=== PATIENT | male | born 1990 | race Two or more races ===

== ENCOUNTER 2016-12-28 10:05 | Emergency (ER) | payer OTHER ==
[2016-12-28 10:21] VITALS: BP 133/78; PULSE 78; TEMP 98.2; BMI 24.1
[2016-12-28] MEDS ORDERED: diazePAM 5 MG TABLET ONE (11:16)
[2016-12-28] MEDS ORDERED: KETOROLAC TROMETHAMINE 60 MG/2 ML VIAL ONE (11:16)
--- NOTE | 2016-12-28 12:25 | PDOC ---
History of Present Illness - General Chief Complaint: Back Pain Stated Complaint: BACK PAIN (DISPLACED DISK) Time Seen by Provider: 12/28/16 10:59 - History of Present Illness Initial Comments: 12/28/16 12:22 CHIEF COMPLAINT: HISTORY OF PRESENT ILLNESS: 26 yo M with no significant PM presents to ED with back pain x "a few days." No recent travel or sick contacts. PAST MEDICAL HISTORY: Denies past medical history FAMILY HISTORY: Denies SOCIAL HISTORY: Lives at home with ____. Occupation: . Denies tobacco, alcohol, illicit drug use. SURGICAL HISTORY: Denies ALLERGIES: No known drug allergies REVIEW OF SYSTEMS General/Constitutional: Denies fever or chills. Denies weakness, weight change. HEENT: Denies change in vision. Denies ear pain or discharge. Denies sore throat. Cardiovascular: Denies chest pain or shortness of breath. Respiratory: Denies cough, wheezing, or hemoptysis. Gastrointestinal: Denies nausea, vomiting, diarrhea or constipation. Denies rectal bleeding. Genitourinary: Denies dysuria, frequency, or change in urination. Musculoskeletal: Denies joint or muscle swelling or pain. Denies neck or back pain. Skin and breasts: Denies rash or easy bruising. Neurologic: Denies headache, vertigo, loss of consciousness, or loss of sensation. Psychiatric: Denies depression or anxiety. Endocrine: Denies increased thirst. Denies abnormal weight change. Hematologic/Lymphatic: Denies anemia, easy bleeding, or history of blood clots. Allergic/Immunologic: Denies hives or skin allergy. Denies latex allergy. PHYSICAL EXAM General Appearance: Well-appearing, appropriately dressed. No apparent distress , no intoxication. HEENT: EOMI, PERRLA, normal ENT inspection, normal voice, TMs normal, pharynx normal. No conjunctival pallor. No photophobia, scleral icterus. Neck: Supple. Trachea midline. No tenderness, rigidity, carotid bruit, stridor , lymphadenopathy, or thyromegaly. Respiratory/Chest: Lungs CTAB. No shortness of breath, chest tenderness, respiratory distress, accessory muscle use. No crackles, rales, rhonchi, stridor , wheezing, dullness Cardiovascular: RRR. S1, S2. No JVD, murmur, bradycardia, tachycardia. Vascular Pulses: Dorsalis-Pedis (R): 2+, Dorsalis-Pedis (L): 2+ Gastrointestinal/Abdominal: Normal bowel sounds. Abdomen soft, non-distended. No tenderness or rebound tenderness. No organomegaly, pulsatile mass, guarding , hernia, hepatomegaly, splenomegaly. Lymphatic: No adenopathy, tenderness. Musculoskeletal/Extremities: Normal inspection. FROM of all extremities, normal capillary refill. Pelvis Stable. No CVA tenderness. No tenderness to extremities, pedal edema, swelling, erythema or deformity. Integumentary: Appropriate color, dry, warm. No cyanosis, erythema, jaundice or rash Neurologic: whipper beater II-XII intact. Fully oriented, alert. Appropriate mood/affect. Motor strength 5/5. No appreciable EOM palsy, facial droop or sensory deficit. Past History - Past Medical History Allergies/Adverse Reactions: Allergies Allergy/AdvReac Type Severity Reaction Status Date / Time No Known Allergies Allergy Verified 12/28/16 10:16 Home Medications: Ambulatory Orders Cyclobenzaprine HCl [Flexeril -] 10 mg PO HS #7 tablet 12/28/16 Naproxen 250 mg PO BID #14 tablet 12/28/16 Oxycodone HCl/Acetaminophen [Percocet 5-325 mg Tablet] 1 - 2 tab PO Q6H PRN #20 tab MDD 6 12/28/16 Other medical history: MIGRANES - Psycho/Social/Smoking Cessation Hx Suicidal Ideation: No Smoking History: Never smoked *Physical Exam - Vital Signs Last Vital Signs Temp Pulse Resp BP Pulse Ox 98.2 F 78 16 133/78 97 12/28/16 10:16 12/28/16 10:16 12/28/16 10:16 12/28/16 10:16 12/28/16 10:16 *DC/Admit/Observation/Transfer Diagnosis at time of Disposition: Lower back pain Qualifiers: Chronicity: acute Back pain laterality: right Sciatica presence: with sciatica Sciatica laterality: sciatica of right side Qualified Code(s): M54.41 - Lumbago with sciatica, right side - Discharge Dispostion Disposition: HOME Condition at time of disposition: Stable Admit: No - Prescriptions Prescriptions: Cyclobenzaprine HCl [Flexeril -] 10 mg PO HS #7 tablet Naproxen 250 mg PO BID #14 tablet Oxycodone HCl/Acetaminophen [Percocet 5-325 mg Tablet] 1 - 2 tab PO Q6H PRN #20 tab MDD 6 PRN Reason: Back Pain - Referrals Referrals: Scottie Ghosh MD [Primary Care Provider] - Cole Cain MD [Staff Physician] - Paul Morales MD [Staff Physician] - - Patient Instructions Printed Discharge Instructions: DI for Hemorrhoids Additional Instructions: Please go across the street and see if the orthopedic office can take you today. Otherwise please follow up with Dr. Morales on Saturday as discussed. Please take your medication as prescribed. Do not drive or operate machinery while taking Percocet or cyclobenzaprine. If you develop any loss of feeling to your legs, loss of bowel or bladder function, inability to walk, or any new or worsening symptoms, please return to the ER. - Post Discharge Activity Work/School Note: Back to Work
[2016-12-28] MEDS ORDERED: diazePAM 5 MG TABLET PO ONE ×2 (12:56→13:23)
[2016-12-28] MEDS ORDERED: KETOROLAC TROMETHAMINE 60 MG/2 ML VIAL IM ONE ×2 (12:56→13:23)
== END 2016-12-28 12:57 | disposition home or self-care (01) ==
LOC: JERFT 10:05
PROC: 3E0233Z Introduction of Anti-inflammatory into Muscle, Percutaneous Approach (ICD-10-PCS; principal; 2016-12-28)
DX: M54.41 Lumbago with sciatica, right side (principal)
CPT/HCPCS: 96372; 99281-25

== ENCOUNTER 2021-07-23 12:39 | Emergency (ER) | payer OTHER ==
[2021-07-23 12:52] VITALS: BP 120/75; PULSE 82; TEMP 97; BMI 26.3
[2021-07-23] MEDS ORDERED: LIDOCAINE HCL 1%, 10 MG/ML (20ML VIAL) ONE (13:42)
[2021-07-23] MEDS ORDERED: LIDOCAINE HCL 1%, 10 MG/ML (50 mL VIAL) INF ONE (14:05)
== END 2021-07-23 14:08 | disposition home or self-care (01) ==
LOC: JERFT 12:39
PROC: 0HQFXZZ Repair Right Hand Skin, External Approach (ICD-10-PCS; principal; 2021-07-23)
DX: S61.216A Laceration without foreign body of right little finger without damage to nail, initial encounter (principal); W25.XXXA Contact with sharp glass, initial encounter
CPT/HCPCS: 99282-25

== ENCOUNTER 2022-04-30 12:45 | Inpatient (IN) | payer OTHER ==
[2022-04-30] MEDS ORDERED: morphine CARPU-JECT 4 MG/1 ML DISP.SYRIN IVPUSH ONE ×2 (15:33→18:38)
[2022-04-30] MEDS ORDERED: ONDANSETRON 4 MG/2 ML VIAL IVPUSH ONE (15:33)
[2022-04-30] MEDS ORDERED: SODIUM CHLORIDE 0.9% 500 ML INFUS.BAG IV ONE (15:33)
[2022-04-30] MEDS ORDERED: ONDANSETRON 4 MG/2 ML VIAL ONE (15:42)
[2022-04-30] MEDS ORDERED: morphine SULFATE 4 MG/ML VIAL ONE ×2 (15:42→18:46)
[2022-04-30 16:50] LABS: HEMATOCRIT 43.9 % (35.4-49); HEMOGLOBIN 14.3 GM/dL (11.7-16.9); MCH 29.6 pg (25.7-33.7); MCHC 32.6 g/dl (32.0-35.9); MEAN CELL VOLUME 90.7 fl (80-96); MEAN PLT VOLUME 9.6 fl (7.5-11.1); PLATELET COUNT 225 10^3/uL (134-434); RBC 4.84 M/mm3 (4.00-5.60); RDW 13.3 % (11.9-15.9); WHITE BLOOD COUNT 16.9 K/mm3 (4.0-10.0)
[2022-04-30 17:00] LABS: ALBUMIN 4.2 g/dl (3.4-5.0); CALCIUM 9.5 mg/dL (8.5-10.1)
[2022-04-30 17:01] LABS: BLOOD UREA NITROGEN 10.9 mg/dL (7-18)
[2022-04-30 17:03] LABS: CREATININE 0.8 mg/dL (0.55-1.3)
[2022-04-30 17:05] LABS: BILIRUBIN,TOTAL 0.4 mg/dL (0.2-1); TOT PROT 8.1 g/dl (6.4-8.2)
[2022-04-30] MEDS ORDERED: PIPERACILLIN/TAZOB 4.5 GM 4.5 GM in DEXTROSE 5%-WATER 100 ML IVPB ONE (18:27)
[2022-04-30] MEDS ORDERED: PIPERACILLIN/TAZOB 4.5 GM 4.5 GM/100 ML BAG IVPB ONE (18:32)
[2022-04-30 18:42] LABS: URINE APPEARANCE CLEAR; URINE BILIRUBIN NEGATIVE (NEGATIVE); URINE COLOR YELLOW; URINE GLUCOSE (UA) NEGATIVE (NEGATIVE); URINE KETONE TRACE (NEGATIVE); URINE LEUK ESTERASE NEGATIVE (NEGATIVE); URINE NITRITE NEGATIVE (NEGATIVE); URINE PROTEIN NEGATIVE (NEGATIVE); URINE UROBILINOGEN 0.2 mg/dL (0.2-1.0)
[2022-04-30] MEDS ORDERED: HYDROmorphone HCl 2 MG/ML VIAL IVPUSH PRN (21:47)
[2022-04-30] MEDS ORDERED: ACETAMINOPHEN 1000 MG/100 ML BAG IVPB PRN (21:49)
[2022-04-30] MEDS: DEXTROSE 5%-NORMAL SALINE 1,000 ML IV SCH (22:58)
[2022-04-30 23:26] VITALS: BMI 25.5
[2022-05-01] MEDS ORDERED: PIPERACILLIN/TAZOBACTAM 3.375 GM VIAL IVPB ONE ×3 (02:03→17:17)
[2022-05-01] MEDS ORDERED: DEXTROSE 5%-WATER - 50 ML IVPB ONE ×3 (02:03→17:17)
[2022-05-01] MEDS: PIPERACILLIN/TAZOB 3.375 GM 3.375 GM in DEXTROSE 5%-WATER - 50 ML IVPB SCH ×3 (02:19→17:44)
[2022-05-01] MEDS: DEXTROSE 5%-NORMAL SALINE 1,000 ML IV SCH (06:14)
[2022-05-01 09:48] LABS: BASO % 0.2 % (0-2.0); EOS % 0.6 % (0-4.5); HEMATOCRIT 40.1 % (35.4-49); HEMOGLOBIN 13.5 GM/dL (11.7-16.9); LYMPH % 10.3 % (8-40); MCH 30.7 pg (25.7-33.7); MCHC 33.7 g/dl (32.0-35.9); MEAN PLT VOLUME 9.6 fl (7.5-11.1); MONO % 6.5 % (3.8-10.2); NEUT % 82.4 % (42.8-82.8); PLATELET COUNT 200 10^3/uL (134-434); RBC 4.41 M/mm3 (4.00-5.60); RDW 13.3 % (11.9-15.9); WHITE BLOOD COUNT 10.6 K/mm3 (4.0-10.0)
[2022-05-01 09:51] LABS: INR 1.15 (0.83-1.09); PROTHROMBIN TIME (PATIENT) 13.2 SEC (9.7-13.0)
[2022-05-01 10:10] LABS: BLOOD UREA NITROGEN 7.6 mg/dL (7-18); CALCIUM 8.8 mg/dL (8.5-10.1)
[2022-05-01 10:11] LABS: ALBUMIN 3.4 g/dl (3.4-5.0); MAGNESIUM 2.1 mg/dL (1.8-2.4)
[2022-05-01 10:13] LABS: CHOLESTEROL 186 mg/dL (50-200); CREATININE 0.8 mg/dL (0.55-1.3); PHOSPHOROUS 3.1 mg/dL (2.5-4.9)
[2022-05-01 10:14] LABS: TOT PROT 7.2 g/dl (6.4-8.2); TRIGLYCERIDES 84 mg/dL (0-150)
[2022-05-01 10:15] LABS: BILIRUBIN,TOTAL 0.7 mg/dL (0.2-1); LDL CHOLESTEROL (ONLY SJRH) 121 mg/dL (5-100)
[2022-05-01 10:17] LABS: HDL CHOLESTEROL 53 mg/dL (40-60)
[2022-05-01] MEDS ORDERED: SIMETHICONE 80 MG TAB.CHEW (FP) PO ONE (20:18)
[2022-05-01] MEDS: DOCUSATE SODIUM 100 MG CAPSULE (FP) PO SCH (21:07)
[2022-05-02] MEDS ORDERED: PIPERACILLIN/TAZOBACTAM 3.375 GM VIAL IVPB ONE ×3 (01:09→18:29)
[2022-05-02] MEDS ORDERED: DEXTROSE 5%-WATER - 50 ML IVPB ONE ×3 (01:09→18:30)
[2022-05-02] MEDS ORDERED: PIPERACILLIN/TAZOB 3.375 GM 3.375 GM in DEXTROSE 5%-WATER - 50 ML IVPB SCH (02:00)
[2022-05-02] MEDS: DEXTROSE 5%-NORMAL SALINE 1,000 ML IV SCH ×2 (02:06→18:42)
[2022-05-02] MEDS: PIPERACILLIN/TAZOB 3.375 GM 3.375 GM in DEXTROSE 5%-WATER - 50 ML IVPB SCH ×3 (02:06→18:41)
[2022-05-02] MEDS: DOCUSATE SODIUM 100 MG CAPSULE (FP) PO SCH (21:18)
[2022-05-03] MEDS ORDERED: PIPERACILLIN/TAZOBACTAM 3.375 GM VIAL IVPB ONE ×2 (01:31→10:21)
[2022-05-03] MEDS ORDERED: DEXTROSE 5%-WATER - 50 ML IVPB ONE ×2 (01:31→10:21)
[2022-05-03] MEDS: PIPERACILLIN/TAZOB 3.375 GM 3.375 GM in DEXTROSE 5%-WATER - 50 ML IVPB SCH ×2 (01:33→10:27)
[2022-05-03] MEDS: DEXTROSE 5%-NORMAL SALINE 1,000 ML IV SCH (01:37)
[2022-05-03] MEDS ORDERED: SIMETHICONE 80 MG TAB.CHEW (FP) PO ONE (04:38)
[2022-05-03 09:26] LABS: BASO % 0.5 % (0-2.0); EOS % 1.9 % (0-4.5); HEMATOCRIT 38.2 % (35.4-49); HEMOGLOBIN 12.6 GM/dL (11.7-16.9); LYMPH % 15.4 % (8-40); MCH 29.8 pg (25.7-33.7); MEAN CELL VOLUME 90.4 fl (80-96); MEAN PLT VOLUME 9.5 fl (7.5-11.1); MONO % 8.4 % (3.8-10.2); NEUT % 73.8 % (42.8-82.8); PLATELET COUNT 212 10^3/uL (134-434); RBC 4.23 M/mm3 (4.00-5.60); WHITE BLOOD COUNT 8.7 K/mm3 (4.0-10.0)
[2022-05-03 09:55] LABS: CALCIUM 9.1 mg/dL (8.5-10.1)
[2022-05-03 09:56] LABS: BLOOD UREA NITROGEN 8.2 mg/dL (7-18)
[2022-05-03 10:00] LABS: CREATININE 0.7 mg/dL (0.55-1.3)
[2022-05-03 15:40] VITALS: BP 140/83; PULSE 87; TEMP 98.5
== END 2022-05-03 17:14 | disposition home or self-care (01) | DRG 392 ==
LOC: JER 12:45 → JERBED 18:50 → J8W 22:06
PROVIDERS: ADMIT Internal Medicine; ATTEND Internal Medicine
DX: K57.20 Diverticulitis of large intestine with perforation and abscess without bleeding (principal); R10.32 Left lower quadrant pain; D72.829 Elevated white blood cell count, unspecified
CPT/HCPCS: 36415; 71046-TC-FY; 74177-TC; 80048; 80053; 80061; 81003; 83036; 83690; 83735; 84100; 84443; 85025; 85610; 86850; 86900; 86901; 87086; 93005; 93010; 99285-25; C9803-CS; U0003; U0005

== ENCOUNTER 2022-08-15 11:16 | Day surgery (SDC) | payer OTHER ==
[2022-08-13 13:52] VITALS: BMI 25.1
[2022-08-15 11:46] VITALS: RESP 18
[2022-08-15 13:27] VITALS: BP 121/70; PULSE 72; TEMP 98
== END 2022-08-15 14:10 | disposition home or self-care (01) ==
LOC: FASU-ENDO 11:16
PROVIDERS: ATTEND Internal Medicine Gastroenterology
PROC: 0DJD8ZZ Inspection of Lower Intestinal Tract, Via Natural or Artificial Opening Endoscopic (ICD-10-PCS; principal; 2022-08-15 12:48)
DX: R93.3 Abnormal findings on diagnostic imaging of other parts of digestive tract (principal); K57.30 Diverticulosis of large intestine without perforation or abscess without bleeding; K64.1 Second degree hemorrhoids

== ENCOUNTER 2024-10-20 02:56 | Inpatient (IN) | payer OTHER ==
[2024-10-20] MEDS ORDERED: morphine SULFATE 4 MG/ML VIAL ONE (03:45)
[2024-10-20] MEDS: morphine CARPU-JECT 4 MG/1 ML DISP.SYRIN IVPUSH ONE (04:09)
[2024-10-20] MEDS: ACETAMINOPHEN 1000 MG/100 ML BAG IVPB ONE ×2 (04:09→07:30)
[2024-10-20] MEDS: LACTATED RINGERS SOLUTION 1000 ML INFUS.BAG IV ONE (04:09)
[2024-10-20 04:18] LABS: BASO % 0.4 % (0-2.0); HEMOGLOBIN 14.4 GM/dL (11.7-16.9); LYMPH % 9.1 % (8-40); MCH 31.5 pg (25.7-33.7); MCHC 33.5 g/dl (32.0-35.9); MEAN CELL VOLUME 94.1 fl (80-96); MEAN PLT VOLUME 9.2 fl (7.5-11.1); MONO % 5.1 % (3.8-10.2); NEUT % 84.4 % (42.8-82.8); PLATELET COUNT 216 10^3/uL (134-434); RBC 4.58 M/mm3 (4.00-5.60); RDW 13.1 % (11.9-15.9); WHITE BLOOD COUNT 14.8 K/mm3 (4.0-10.0)
[2024-10-20 04:38] LABS: INR 0.99 (0.83-1.09); PROTHROMBIN TIME (PATIENT) 11.2 SEC (9.7-13.0)
[2024-10-20 04:40] LABS: ACTIVATED PTT 30.7 SECONDS (25.2-36.5)
[2024-10-20 04:46] LABS: POTASSIUM 4.3 mmol/L (3.5-5.1)
[2024-10-20 04:48] LABS: ALBUMIN 3.8 g/dl (3.4-5.0); CALCIUM 9.6 mg/dL (8.5-10.1)
[2024-10-20 04:49] LABS: BLOOD UREA NITROGEN 19.3 mg/dL (7-18)
[2024-10-20 04:52] LABS: CREATININE 1.1 mg/dL (0.55-1.3)
[2024-10-20 04:53] LABS: BILIRUBIN,TOTAL 0.4 mg/dL (0.2-1); TOT PROT 7.8 g/dl (6.4-8.2)
[2024-10-20 06:39] LABS: PH,URINE 6.5 (5.0-8.0); URINE APPEARANCE CLEAR; URINE BILIRUBIN NEGATIVE (NEGATIVE); URINE COLOR YELLOW; URINE GLUCOSE (UA) NEGATIVE (NEGATIVE); URINE KETONE TRACE (NEGATIVE); URINE LEUK ESTERASE NEGATIVE (NEGATIVE); URINE NITRITE NEGATIVE (NEGATIVE); URINE PROTEIN NEGATIVE (NEGATIVE); URINE UROBILINOGEN 0.2 mg/dL (0.2-1.0)
[2024-10-20] MEDS ORDERED: PIPERACILLIN/TAZOB 3.375 GM 3.375 GM/50 ML BAG IVPB ONE (06:41)
[2024-10-20] MEDS: PIPERACILLIN/TAZOB 3.375 GM 3.375 GM in DEXTROSE 5%-WATER - 50 ML IVPB ONE (06:50)
[2024-10-20] MEDS ORDERED: ACETAMINOPHEN INJECTION 100 ML ONE (07:19)
[2024-10-20] MEDS: LACTATED RINGERS SOLUTION 1,000 ML IV SCH (09:50)
[2024-10-20 10:00] VITALS: BMI 25.0
[2024-10-20] MEDS: ACETAMINOPHEN 1000 MG/100 ML BAG IVPB SCH (13:36)
[2024-10-20] MEDS ORDERED: ONDANSETRON 4 MG/2 ML VIAL IVPUSH PRN (17:55)
[2024-10-20] MEDS ORDERED: PIPERACILLIN/TAZOB 3.375 GM 50 ML IVPB SCH ×2 (18:00)
[2024-10-20] MEDS ORDERED: KETOROLAC TROMETHAMINE 30 MG/1 ML VIAL IVPUSH PRN (18:02)
[2024-10-20] MEDS: PIPERACILLIN/TAZOB 2.25 GM 2.25 GM/50 ML BAG IVPB SCH ×2 (18:40→19:11)
[2024-10-21 09:32] VITALS: RESP 18
[2024-10-21 09:33] LABS: BASO % 0.2 % (0-2.0); EOS % 0.4 % (0-4.5); HEMOGLOBIN 13.5 GM/dL (11.7-16.9); LYMPH % 9.9 % (8-40); MCH 31.9 pg (25.7-33.7); MCHC 33.7 g/dl (32.0-35.9); MEAN CELL VOLUME 94.5 fl (80-96); MEAN PLT VOLUME 9.4 fl (7.5-11.1); MONO % 6.8 % (3.8-10.2); NEUT % 82.7 % (42.8-82.8); PLATELET COUNT 197 10^3/uL (134-434); RBC 4.23 M/mm3 (4.00-5.60); RDW 12.7 % (11.9-15.9); WHITE BLOOD COUNT 17.2 K/mm3 (4.0-10.0)
[2024-10-21] MEDS: ENOXAPARIN NA (PORCINE) 40 MG/0.4 ML DISP.SYRIN SQ SCH (09:36)
[2024-10-21 09:38] LABS: POTASSIUM 3.7 mmol/L (3.5-5.1)
[2024-10-21 09:46] LABS: BLOOD UREA NITROGEN 10.4 mg/dL (7-18)
[2024-10-21 09:47] LABS: CALCIUM 9.2 mg/dL (8.5-10.1)
[2024-10-21 09:48] LABS: ALBUMIN 3.3 g/dl (3.4-5.0)
[2024-10-21 09:49] LABS: CREATININE 0.9 mg/dL (0.55-1.3)
[2024-10-21 09:51] LABS: BILIRUBIN,TOTAL 0.8 mg/dL (0.2-1); TOT PROT 7.3 g/dl (6.4-8.2)
[2024-10-21] MEDS: LACTATED RINGERS SOLUTION 1,000 ML/1,000 ML INFUS.BAG IV SCH (16:01)
[2024-10-21] MEDS: ACETAMINOPHEN 1000 MG/100 ML BAG IVPB PRN (21:55)
[2024-10-22 08:55] LABS: POTASSIUM 3.6 mmol/L (3.5-5.1)
[2024-10-22 08:57] LABS: CALCIUM 9.1 mg/dL (8.5-10.1)
[2024-10-22 08:59] LABS: ALBUMIN 3.2 g/dl (3.4-5.0); BLOOD UREA NITROGEN 8.7 mg/dL (7-18)
[2024-10-22 09:02] LABS: CREATININE 0.8 mg/dL (0.55-1.3)
[2024-10-22 09:04] LABS: BILIRUBIN,TOTAL 0.7 mg/dL (0.2-1); TOT PROT 7.3 g/dl (6.4-8.2)
[2024-10-22 09:07] LABS: BASO % 0.2 % (0-2.0); EOS % 0.9 % (0-4.5); HEMATOCRIT 39.8 % (35.4-49); HEMOGLOBIN 13.4 GM/dL (11.7-16.9); LYMPH % 11.8 % (8-40); MCH 31.8 pg (25.7-33.7); MCHC 33.8 g/dl (32.0-35.9); MEAN CELL VOLUME 94.1 fl (80-96); MEAN PLT VOLUME 9.4 fl (7.5-11.1); MONO % 6.8 % (3.8-10.2); NEUT % 80.3 % (42.8-82.8); PLATELET COUNT 222 10^3/uL (134-434); RBC 4.23 M/mm3 (4.00-5.60); WHITE BLOOD COUNT 13.6 K/mm3 (4.0-10.0)
[2024-10-22 14:17] VITALS: BP 113/89; PULSE 103; TEMP 99
[2024-10-22] MEDS ORDERED: AMOX TR/POT CLAV 875MG/125MG TABLETS (FP) PO SCH (17:30)
[2024-10-22] MEDS ORDERED: metroNIDAZOLE 250 MG TABLET PO SCH (22:00)
== END 2024-10-22 15:45 | disposition home or self-care (01) | DRG 392 ==
LOC: JER 02:56 → JERBED 06:35 → OBSVTOIN 08:18 → J8W 08:37
PROVIDERS: ADMIT Internal Medicine; ATTEND Nurse Practitioner Acute Care
DX: K57.20 Diverticulitis of large intestine with perforation and abscess without bleeding (principal)
CPT/HCPCS: 36415; 74177-TC; 80053; 81003; 83605; 83690; 83735; 85025; 85610; 85730; 86140; 86850; 86900; 86901; 87086; 93005; 93010; 99285-25; G0378; J0131; Q9967

== ENCOUNTER 2025-03-09 06:21 | Inpatient (IN) | payer OTHER ==
[2025-03-04 11:36] VITALS: BMI 25.2
[2025-03-09] MEDS ORDERED: ACETAMINOPHEN 500 MG TABLET (FP) ONE (06:24)
[2025-03-09] MEDS ORDERED: GABAPENTIN 300 MG CAPSULE ONE (06:25)
[2025-03-09] MEDS: GABAPENTIN 300 MG CAPSULE PO ONE (06:29)
[2025-03-09] MEDS: ACETAMINOPHEN 500 MG TABLET (FP) PO ONE (06:29)
[2025-03-09] MEDS ORDERED: INDOCYANINE GREEN 25 MG/10 ML VIAL IVPUSH ONE ×2 (07:15→08:44)
[2025-03-09] MEDS ORDERED: BUPIVACAINE HCL/PF 0.25% (2.5MG/ML) 10 ML VIAL ONE ×2 (07:16→09:23)
[2025-03-09] MEDS ORDERED: HEPARIN NA (PORCINE) 5,000 UNITS/ML 1ML VIAL ONE (07:16)
[2025-03-09] MEDS: SCOPOLAMINE HYDROBROMIDE 1 PATCH PATCH.TD72 TD ONE (07:22)
[2025-03-09] MEDS: cefOXitin SODIUM 2 GM VIAL (RESTRICTED TO ID) IVPB ONE ×2 (07:30→08:11)
[2025-03-09] MEDS ORDERED: PROPOFOL 20 ML ONE ×2 (07:33→08:17)
[2025-03-09] MEDS ORDERED: LIDOCAINE HCL/PF 2% SDV 5ML VIAL ONE (07:33)
[2025-03-09] MEDS ORDERED: ONDANSETRON 4 MG/2 ML VIAL ONE ×2 (07:33→08:31)
[2025-03-09] MEDS ORDERED: DEXAMETHASONE SOD PHOSPHATE 4 MG/1 ML VIAL ONE ×2 (07:33→08:31)
[2025-03-09] MEDS ORDERED: ROCURONIUM BROMIDE 50 MG/5 ML SYRINGE ONE ×3 (07:33→12:52)
[2025-03-09] MEDS ORDERED: MIDAZOLAM HCL 2 MG/2 ML SINGLE DOSE VIAL ONE (07:33)
[2025-03-09] MEDS ORDERED: HYDROmorphone HCl 2 MG/ML VIAL ONE (08:27)
[2025-03-09] MEDS: BUPIVACAINE HCL/PF 0.25% (2.5MG/ML) 10 ML VIAL IJ ONE ×2 (08:39)
[2025-03-09] MEDS ORDERED: cefOXitin SODIUM 2 GM VIAL (RESTRICTED TO ID) IVPB ONE (08:43)
[2025-03-09] MEDS ORDERED: ACETAMINOPHEN INJECTION 100 ML ONE (10:57)
[2025-03-09] MEDS ORDERED: TRANEXAMIC ACID 1000 MG/10 ML VIAL ONE (11:30)
[2025-03-09] MEDS ORDERED: SUGAMMADEX SODIUM 200 MG/2 ML VIAL ONE (13:33)
[2025-03-09] MEDS ORDERED: LACTATED RINGERS SOLUTION 1,000 ML IV SCH (16:15)
[2025-03-09] MEDS ORDERED: HYDROmorphone HCL CARPU-JECT 2 MG/1 ML DISP.SYRIN ONE (16:51)
[2025-03-09] MEDS: HYDROmorphone HCl 2 MG/ML VIAL IVPUSH PRN (16:56)
[2025-03-09] MEDS: HYDROmorphone HCL CARPU-JECT 2 MG/1 ML DISP.SYRIN IVPUSH ONE ×2 (17:18→18:20)
[2025-03-09] MEDS: CEFOXITIN SODIUM 1 GM in DEXTROSE 5%-WATER - 100 ML IVPB SCH (17:37)
[2025-03-09] MEDS ORDERED: HYDROmorphone HCl 2 MG/ML VIAL IVPUSH PRN (18:04)
[2025-03-09] MEDS: oxyCODONE HCL 5 MG TABLET PO PRN (18:30)
[2025-03-09] MEDS: SODIUM CHLORIDE 1,000 ML IV SCH (18:31)
[2025-03-09] MEDS: TRANEXAMIC ACID 1000 MG/10 ML VIAL IVPUSH SCH (18:52)
[2025-03-09] MEDS: TRANEXAMIC ACID - 1,000 MG in SODIUM CHLORIDE 50 ML IVPB SCH (19:53)
[2025-03-09] MEDS: morphine SULFATE 4 MG/ML VIAL IVPUSH PRN (19:55)
[2025-03-09] MEDS: ACETAMINOPHEN 1000 MG/100 ML BAG IVPB SCH (20:06)
[2025-03-10] MEDS: CEFOXITIN SODIUM 1 GM in DEXTROSE 5%-WATER - 100 ML IVPB SCH (00:58)
[2025-03-10 07:39] LABS: ABSOLUTE IMMATURE GRANULOCYTES 0.04 x10^3/uL (0.0-0.031); BASOPHILS # 0.02 x10^3/uL (0.01-0.08); EOSINOPHIL % 0.1 % (0.8-7.0); EOSINOPHILS # 0.01 x10^3/uL (0.04-0.54); HEMATOCRIT 43.2 % (40.1-51.0); HEMOGLOBIN 14.5 g/dL (13.7-17.5); MCHC 33.6 g/dl (32.3-36.5); MEAN CELL VOLUME 92.9 fl (79.0-92.2); MEAN PLT VOLUME 11.1 fl (9.4-12.4); MONOCYTE # 1.18 x10^3/uL (0.30-0.82); MONOCYTE % 12.5 % (5.3-12.2); PLATELET COUNT 203 x10^3/uL (163-337); RDW 11.7 % (12.0-15.6)
[2025-03-10] MEDS ORDERED: oxyCODONE HCL 5 MG TABLET PO PRN ×3 (08:06→08:34)
[2025-03-10 08:13] LABS: CALCIUM 8.8 mg/dL (8.5-10.1)
[2025-03-10 08:14] LABS: BLOOD UREA NITROGEN 6.7 mg/dL (7-18); MAGNESIUM 1.8 mg/dL (1.8-2.4)
[2025-03-10 08:17] LABS: CREATININE 0.8 mg/dL (0.55-1.3); PHOSPHOROUS 4.3 mg/dL (2.5-4.9)
[2025-03-10] MEDS: ENOXAPARIN NA (PORCINE) 40 MG/0.4 ML DISP.SYRIN SQ SCH (09:50)
[2025-03-10] MEDS: EMTRICITABINE 200MG/TENOFOVIR 300MG PO SCH (09:50)
[2025-03-10] MEDS: KETOROLAC TROMETHAMINE 15 MG/ML VIAL IVPUSH SCH (09:50)
[2025-03-10] MEDS: ONDANSETRON 4 MG/2 ML VIAL IVPUSH PRN (23:33)
[2025-03-11 08:24] LABS: ABSOLUTE IMMATURE GRANULOCYTES 0.04 x10^3/uL (0.0-0.031); BASOPHILS # 0.02 x10^3/uL (0.01-0.08); EOSINOPHIL % 0.2 % (0.8-7.0); EOSINOPHILS # 0.02 x10^3/uL (0.04-0.54); HEMATOCRIT 40.4 % (40.1-51.0); HEMOGLOBIN 13.2 g/dL (13.7-17.5); MCHC 32.7 g/dl (32.3-36.5); MEAN CELL VOLUME 94.4 fl (79.0-92.2); MEAN PLT VOLUME 11.1 fl (9.4-12.4); MONOCYTE # 0.79 x10^3/uL (0.30-0.82); MONOCYTE % 8.5 % (5.3-12.2); PLATELET COUNT 196 x10^3/uL (163-337); RDW 11.9 % (12.0-15.6)
[2025-03-11 09:21] LABS: POTASSIUM 4.2 mmol/L (3.5-5.1)
[2025-03-11 09:32] LABS: CALCIUM 9.1 mg/dL (8.5-10.1)
[2025-03-11 09:33] LABS: BLOOD UREA NITROGEN 10.4 mg/dL (7-18); MAGNESIUM 2.2 mg/dL (1.8-2.4)
[2025-03-11 09:36] LABS: CREATININE 1.2 mg/dL (0.55-1.3); PHOSPHOROUS 3.6 mg/dL (2.5-4.9)
[2025-03-11] MEDS: ACETAMINOPHEN 1000 MG/100 ML BAG IVPB SCH (09:38)
[2025-03-11] MEDS: traMADol HCL 50 MG TABLET PO PRN (10:55)
[2025-03-11 14:07] VITALS: RESP 18
[2025-03-12 07:49] LABS: ABSOLUTE IMMATURE GRANULOCYTES 0.08 x10^3/uL (0.0-0.031); BASOPHILS # 0.02 x10^3/uL (0.01-0.08); EOSINOPHIL % 0.4 % (0.8-7.0); EOSINOPHILS # 0.06 x10^3/uL (0.04-0.54); HEMATOCRIT 37.3 % (40.1-51.0); HEMOGLOBIN 12.4 g/dL (13.7-17.5); MCHC 33.2 g/dl (32.3-36.5); MEAN PLT VOLUME 11.1 fl (9.4-12.4); MONOCYTE % 7.1 % (5.3-12.2); PLATELET COUNT 184 x10^3/uL (163-337); RDW 11.7 % (12.0-15.6)
[2025-03-12 08:10] LABS: POTASSIUM 3.6 mmol/L (3.5-5.1)
[2025-03-12 08:16] LABS: CALCIUM 8.7 mg/dL (8.5-10.1)
[2025-03-12 08:17] LABS: BLOOD UREA NITROGEN 10.4 mg/dL (7-18)
[2025-03-12 08:20] LABS: CREATININE 1.1 mg/dL (0.55-1.3); PHOSPHOROUS 3.3 mg/dL (2.5-4.9)
[2025-03-12 11:12] VITALS: BP 141/88; PULSE 101; TEMP 98.6
== END 2025-03-12 14:11 | disposition home or self-care (01) | DRG 331 ==
LOC: J2C 06:21 → J8W 17:55
PROVIDERS: ADMIT Internal Medicine; ATTEND Nurse Practitioner Acute Care
PROC: 8E0W4CZ Robotic Assisted Procedure of Trunk Region, Percutaneous Endoscopic Approach (ICD-10-PCS; 2025-03-09)
PROC: 0DTN4ZZ Resection of Sigmoid Colon, Percutaneous Endoscopic Approach (ICD-10-PCS; principal; 2025-03-09 07:45)
PROC: 0T788DZ Dilation of Bilateral Ureters with Intraluminal Device, Via Natural or Artificial Opening Endoscopic (ICD-10-PCS; 2025-03-09 07:45)
DX: K57.32 Diverticulitis of large intestine without perforation or abscess without bleeding (principal)
CPT/HCPCS: 36415; 80048; 83735; 84100; 85025; 86140; 86850; 86900; 86901; 88307-TC; 94760; 97116-GP; 97161-GP